=== PATIENT | male | born 1985 | race Asian ===

== ENCOUNTER 2016-07-28 16:06 | Emergency (ER) | payer MEDICAID ==
[~2016-07-28] VITALS: Ht 167.6 cm; Wt 61.2 kg
[~2016-07-28 16:06] MED LIST: DIVA250E1 PO
--- NOTE | 2016-07-28 16:06 | NUR ---
Patient was BIBA at this time.
[2016-07-28 16:14] VITALS: BP 144/98
[2016-07-28] MEDS ORDERED: ZONI100C12 PO (16:18)
--- NOTE | 2016-07-28 16:38 | NUR ---
Dr. Nielsen evaluating patient at bedside.
--- NOTE | 2016-07-28 16:40 | NUR ---
30 YO MALE BIB EMS FROM [facility] FOR POSSIBLE SEIZURE; DENIES N/V/D; SKIN IS PINK/WARM/DRY; AAOX4 WITH EVEN AND STEADY GAIT; LUNGS CLEAR BL; HR EVEN AND REGULAR; PT DENIES ANY FEVER, CP, SOB, OR COUGH AT THIS TIME; PATIENT STATES PAIN OF 0/10 AT THIS TIME; VSS; PATIENT POSITIONED FOR COMFORT; HOB ELEVATED; BEDRAILS UP X2; BED DOWN. ER MD MADE AWARE OF PT STATUS.
--- NOTE | 2016-07-28 17:00 | NUR ---
IV ESTABLISHED ON RIGHT AC 20G, BLOOD SAMPLES COLLECTED, URINE SAMPLE COLLECTED, SAMPLES GIVEN TO STOCK PREPARATION SUPERVISORFAYE GARCIA FOR ANALYSIS
[2016-07-28 17:25] LABS: ANION GAP 11.2 (8-16); CALCIUM 8.6 mg/dL (8.5-10.1); CARBON DIOXIDE 28.6 mmol/L (21-32); CREATININE 0.9 mg/dL (0.6-1.3); POTASSIUM 3.8 mmol/L (3.5-5.1)
[2016-07-28 17:30] LABS: MAGNESIUM 1.9 mg/dL (1.8-2.4); PHOSPHORUS 3.3 mg/dL (2.5-4.9)
--- NOTE | 2016-07-28 17:51 | NUR ---
SET OFF PRESS OPERATOR OF PT CLAY WANG GIVEN MORE INFORMATION TO DR CLARKE OF LAST SEIZURE EPISODE 4 MONTHS AGO, BEEN TAKING DEPAKOTE, KEPRA
--- NOTE | 2016-07-28 18:09 | NUR ---
[facility] PT TAKEN OFF THE UNIT VIA GURNEY BY ADULT EDUCATION INSTRUCTOR DAO FOR CT OF THE HEAD ORDERED BY DR SIMMONS
[2016-07-28 18:13] LABS: AMPHETAMINE, URINE NEG. ng/ml (NEG <=1000); BARBITURATE, URINE NEG. ng/ml (NEG <=200); BENZODIAZEPINE, URINE NEG. ng/mL (NEG <=200); CANNABINOID, URINE NEG. ng/mL (NEG <=50); COCAINE, URINE NEG. ng/mL (NEG <=300); OPIATE, URINE NEG. ng/mL (NEG <=2000); PHENCYCLIDINE SCREEN,URINE NEG. ng/mL (NEG <=25)
--- NOTE | 2016-07-28 19:13 | NUR ---
RECEIVED REPORT FROM DAY NURSE GHISLAINE FOR TRANSFER OF CARE.
--- NOTE | 2016-07-28 19:17 | NUR ---
REPORT GIVEN TO ERICKSON PERALTA
[2016-07-28 20:12] VITALS: BP 122/47
--- NOTE | 2016-07-28 20:14 | NUR ---
Patient discharged with v/s stable. Written and verbal after care instructions given and explained. Patient alert, oriented and verbalized understanding of instructions. Ambulatory with steady gait. All questions addressed prior to discharge. ID band removed. Patient advised to follow up with PMD. NO Rx WERE given. Patient educated on indication of medication including possible reaction and side effects. Opportunity to ask questions provided and answered. ACCOMPANIED BY STABILIZING MACHINE OPERATOR CLAY WANG.
== END 2016-07-28 20:13 | disposition home or self-care (01) ==
LOC: MED 16:06
DX: R56.9 Unspecified convulsions (principal); R03.0 Elevated blood-pressure reading, without diagnosis of hypertension
CPT/HCPCS: 36415; 70450; 80048; 80173; 80305; 81002; 83735; 84100; 99285

== ENCOUNTER 2016-08-25 12:26 | Emergency (ER) | payer MEDICAID ==
[~2016-08-25] VITALS: Ht 167.6 cm; Wt 63.5 kg
[~2016-08-25 12:26] MED LIST changes: -DIVA250E1 PO; +ZONI100C12 PO
--- NOTE | 2016-08-25 12:26 | NUR ---
Patient BIBA and taken to bed 03 via gurney per EMS.
[2016-08-25 12:34] VITALS: BP 148/86
--- NOTE | 2016-08-25 12:45 | NUR ---
PT BIB AMBULANCE TO ER WITH NEAR [facility] EPISODE AT [facility] TODAY. NO TRAUMA OR INJURY FOUND. DENIES N/V/D; SKIN IS PINK/WARM/DRY; AAO X3. AMBULATORY. LUNGS CLEAR BL; HR EVEN AND REGULAR; PT DENIES ANY FEVER, CP, SOB, OR COUGH AT THIS TIME; PATIENT STATES PAIN OF 0/10 AT THIS TIME; VSS; PATIENT POSITIONED FOR COMFORT; HOB ELEVATED; BEDRAILS UP X2; BED DOWN. ER MD MADE AWARE OF PT STATUS.
--- NOTE | 2016-08-25 12:47 | NUR ---
Dr. Morales evaluating patient at bedside.
--- NOTE | 2016-08-25 14:11 | NUR ---
PT RESTING IN BED, DENIED ANY PAIN A THIS TIME. WILL CONTINUE TO MONITOR.
--- NOTE | 2016-08-25 16:25 | NUR ---
PT'S CAREGIVER, Lindsay, has been called to pickle solution maker pt. Pt is stable and await for pickup.
[2016-08-25 16:47] VITALS: BP 119/87
--- NOTE | 2016-08-25 16:48 | NUR ---
Patient discharged with v/s stable. Written and verbal after care instructions given and explained. Patient verbalized understanding. Ambulatory with by caregiver-Lindsay. All questions addressed prior to discharge. Advised to follow up with PMD.
== END 2016-08-25 16:48 | disposition home or self-care (01) ==
LOC: MED 12:26
DX: R55 Syncope and collapse (principal)
CPT/HCPCS: 99283

== ENCOUNTER 2018-07-17 13:01 | Emergency (ER) | payer MEDICAID ==
[~2018-07-17] VITALS: Ht 172.7 cm; Wt 68.0 kg
[~2018-07-17 13:01] MED LIST changes: -ZONI100C12 PO; +ZONI100C34 PO
[2018-07-17 13:06] VITALS: BP 173/82
--- NOTE | 2018-07-17 13:16 | NUR ---
BROUGHT IN BY EMS FROM A NEARBY [facility] WITNESSED GAZE AND STIFFENED EXTREMITIES WHILE STANDING; PT DID NOT FALL , NO INCONTINENCE --NO POST-ICTAL AT EMS CONTACT; COOPERATIVE IN ER ---JAIL [place] HAS BEEN NOTIFIED HX--SEIZURE, AUTISM RX---??
--- NOTE | 2018-07-17 13:16 | NUR ---
ORGANIC SEARCH LEAD AT BEDSIDE . SHE REPORTED PT TOLD HER HER THAT HE LOSS OF BALANCE.DENIES SEIZURE.
[2018-07-17] MEDS ORDERED: NACL 0.9% 1,000 ML IV SCH (13:32)
[2018-07-17] MEDS ORDERED: LORazepam 2 MG/ML VIAL IVP ONE (13:35)
[2018-07-17 14:33] LABS: BASOPHILS % (AUTO) 0.6 % (0.0-2.0); EOSINOPHILS % (AUTO) 0.6 % (0.0-4.0); HEMATOCRIT 44.9 % (36-52); HEMOGLOBIN 14.8 g/dL (12.0-18.0); LYMPHOCYTES # (AUTO) 2.1 K/uL (2.0-11.5); LYMPHOCYTES % (AUTO) 33.4 % (20.5-51.1); MEAN CORPUSCULAR HEMOGLOBIN 29 pg (27-31); MEAN CORPUSCULAR HGB CONC 33 g/dL (33-37); MEAN CORPUSCULAR VOLUME 88.5 fL (80-94); MONOCYTES # (AUTO) 0.3 K/uL (0.8-1.0); MONOCYTES % (AUTO) 4.7 % (1.7-9.3); NEUTROPHILS # (AUTO) 3.9 K/uL (1.8-7.7); NEUTROPHILS % (AUTO) 60.7 % (42.2-75.2); PLATELET COUNT (AUTO) 209 K/uL (140-450); RED BLOOD CELL COUNT(AUTO) 5.07 MIL/uL (4.20-6.10); WHITE BLOOD COUNT (AUTO) 6.4 K/uL (4.8-10.8)
[2018-07-17 14:50] LABS: ANION GAP 14.6 (8-16); CARBON DIOXIDE 24.7 mmol/L (21-32); CREATININE 0.9 mg/dL (0.7-1.3); POTASSIUM 4.3 mmol/L (3.5-5.1)
[2018-07-17 14:57] LABS: PROTHROMBIN TIME 9.9 secs (10.8-13.4)
[2018-07-17 15:01] LABS: ALBUMIN 4.1 g/dL (3.4-5.0); MAGNESIUM 1.7 mg/dL (1.8-2.4); TOTAL BILIRUBIN 0.2 mg/dL (0.0-1.0)
[2018-07-17 15:11] VITALS: BP 126/89
--- NOTE | 2018-07-17 15:11 | NUR ---
Patient discharged with v/s stable. Written and verbal after care instructions given and explained. Patient verbalized understanding. Ambulatory with steady gait. All questions addressed prior to discharge. Advised to follow up with PMD.
== END 2018-07-17 15:11 | disposition home or self-care (01) ==
LOC: MED 13:01
DX: R56.9 Unspecified convulsions (principal); F84.0 Autistic disorder; R79.1 Abnormal coagulation profile; Z79.899 Other long term (current) drug therapy
CPT/HCPCS: 36415; 80053; 80173; 82550; 83605; 83735; 84484; 85025; 85610; 85730; 93005; 96374; 99284; J2060; J7030